=== PATIENT | female | born 1960 | race American Indian/Alaskan Native ===

== ENCOUNTER 2021-11-05 09:35 | Emergency (ER) | payer OTHER ==
[2021-11-05] MEDS ORDERED: SODIUM CHLORIDE 0.9% 1000 ML IV SOLN IV ONE (10:29)
[2021-11-05] MEDS ORDERED: ONDANSETRON 4 MG/2 ML INJ IV ONE ×2 (10:30→17:26)
--- NOTE | 2021-11-05 10:39 | Emergency Department Report ---
ED N/V/D HPI - General Chief complaint: Weakness Stated complaint: ANGIE/MALAISE Time Seen by Provider: 11/05/21 10:20 Source: patient, EMS, old records reviewed (No previous medical record available for review) Mode of arrival: Stretcher Limitations: No Limitations - History of Present Illness Initial comments: 61-year-old female with a past medical history of hypertension and breast cancer presents to the hospital complaining of persistent nausea, vomiting, diarrhea with generalized weakness status post chemo. Patient received chemo 8 days ago for left-sided breast cancer diagnosed in August. She states she typically has nausea, vomiting, diarrhea 3 days post chemo which also occurred during this time. She is taken medications for the symptoms but symptoms continue and today she was too weak to get out of the bathroom. She presents mildly hypotensive and tachycardic with generalized weakness and report of intermittent cramping to her hands and legs. Patient states that 6 days ago she had a urethral/bladder surgical procedure performed at [facility] and presents with a Wild catheter. Patient denies fever but states she is having intermittent chills. No chest pain reported. Patient is a Young without previous visits here Code sepsis initiated after my bedside evaluation - Related Data Allergies Allergy/AdvReac Type Severity Reaction Status Date / Time orange AdvReac Unknown Verified 11/05/21 09:37 shellfish derived AdvReac Unknown Verified 11/05/21 09:37 ED Review of Systems ROS: Stated complaint: ANGIE/MALAISE Other details as noted in HPI Comment: All other systems reviewed and negative ED Past Medical Hx - Past Medical History Hx Hypertension: Yes Hx of Cancer: Yes (Left breast cancer diagnosed August) - Surgical History Additional Surgical History: Ectopic , umbilical hernia repair as a child ED Physical Exam - General Limitations: No Limitations - Other Other exam information: General: No acute distress Head: Atraumatic Eyes: normal appearance ENT: Moist mucous membranes Neck: Normal appearance, no midline tenderness Chest: Clear to auscultation bilaterally CV: Regular rate and rhythm Abdomen: Soft, normal bowel sounds, left upper quadrant tenderness , nondistended, no rebound or guarding Back: Normal inspection Extremity: Normal inspection, full range of motion Neuro: Alert O x 3, no facial asymmetry, speech clear, no gross motor sensory deficit Psych: Appropriate behavior Skin: No rash ED Course Vital Signs 11/05/21 11/05/21 11/05/21 09:36 09:40 11:21 Temperature 97.2 F L Pulse Rate 104 H 89 Respiratory 14 18 Rate Blood Pressure 94/53 Blood Pressure 108/68 95/60 [Left] O2 Sat by Pulse 100 9 L Oximetry 11/05/21 11/05/21 13:05 19:33 Temperature 97.6 F 98.2 F Pulse Rate 89 68 Respiratory 16 18 Rate Blood Pressure Blood Pressure 100/64 102/62 [Left] O2 Sat by Pulse 99 99 Oximetry - Consultations Consultation #1: 11/05/21 13:22 Case discussed with [facility] doctor At this time. Acceptance pending reassessment after IV fluid bolus. If blood pressure and other vitals remain within normal range they will accept the transfer. If patient becomes unstable during resuscitation and admission here will be recommended 11/05/21 14:21 Case we discussed with [facility] physician. Patient is tentatively accepted. Lactic acid is trending downward. Repeat troponin ordered. Patient's blood pressure is improved just after 1 L normal saline with repeat liters pending. Magnesium also has finished infusion and patient is currently receiving IV potassium. [facility] physician will put in request for bed. Patient be signed out to oncoming provider to follow-up on repeat troponin to ensure not trending upward and reassessment of stability prior to transfer to [facility] ED Medical Decision Making - Lab Data Result diagrams: 11/05/21 10:47 11/05/21 10:47 Lab Results 11/05/21 11/05/21 11/05/21 Range/Units 10:47 10:47 10:47 WBC 5.5 (4.5-11.0) K/mm3 RBC 3.78 (3.65-5.03) M/mm3 Hgb 10.8 (10.1-14.3) gm/dl Hct 31.7 (30.3-42.9) % MCV 84 (79-97) fl MCH 29 (28-32) pg MCHC 34 (30-34) % RDW 20.8 H (13.2-15.2) % Plt Count 111 L (140-440) K/mm3 Add Manual Diff Complete Total Counted 100 Seg Neuts % (Manual) 55.0 (40.0-70.0) % Band Neutrophils % 13.0 % Lymphocytes % (Manual) 16.0 (13.4-35.0) % Reactive Lymphs % (Man) 0 % Monocytes % (Manual) 14.0 H (0.0-7.3) % Eosinophils % (Manual) 0 (0.0-4.3) % Basophils % (Manual) 0 (0.0-1.8) % Metamyelocytes % 2.0 % Myelocytes % 0 % Promyelocytes % 0 % Blast Cells % 0 % Nucleated RBC % Not Reportable Seg Neutrophils # Man 3.0 (1.8-7.7) K/mm3 Band Neutrophils # 0.7 K/mm3 Lymphocytes # (Manual) 0.9 L (1.2-5.4) K/mm3 Abs React Lymphs (Man) 0.0 K/mm3 Monocytes # (Manual) 0.8 (0.0-0.8) K/mm3 Eosinophils # (Manual) 0.0 (0.0-0.4) K/mm3 Basophils # (Manual) 0.0 (0.0-0.1) K/mm3 Metamyelocytes # 0.1 K/mm3 Myelocytes # 0.0 K/mm3 Promyelocytes # 0.0 K/mm3 Blast Cells # 0.0 K/mm3 WBC Morphology Not Reportable Hypersegmented Neuts Not Reportable Hyposegmented Neuts Not Reportable Hypogranular Neuts Not Reportable Smudge Cells Not Reportable Toxic Granulation Not Reportable Toxic Vacuolation Not Reportable Dohle Bodies Not Reportable Pelger-Huet Anomaly Not Reportable Chelly Rods Not Reportable Platelet Estimate Consistent w auto Clumped Platelets Not Reportable Plt Clumps, EDTA Not Reportable Large Platelets Not Reportable Giant Platelets Not Reportable Platelet Satelliting Not Reportable Plt Morphology Comment Not Reportable RBC Morphology Not Reportable Dimorphic RBCs Not Reportable Polychromasia Not Reportable Hypochromasia Not Reportable Poikilocytosis 1+ Anisocytosis 1+ Microcytosis Not Reportable Macrocytosis Not Reportable Spherocytes Not Reportable Pappenheimer Bodies Not Reportable Sickle Cells Not Reportable Target Cells Not Reportable Tear Drop Cells Not Reportable Ovalocytes 1+ Helmet Cells Not Reportable Brewer-Bruni Bodies Not Reportable [place] Rings Not Reportable [place] Cells Not Reportable Bite Cells Not Reportable Crenated Cell Not Reportable Elliptocytes Few Acanthocytes (Spur) Not Reportable Rouleaux Not Reportable Hemoglobin C Crystals Not Reportable Schistocytes Not Reportable Malaria parasites Not Reportable Jose M Bodies Not Reportable Hem Pathologist Commnt No VBG pH (7.320-7.420) Sodium 139 (137-145) mmol/L Potassium 2.6 L* (3.6-5.0) mmol/L Chloride 91.4 L (98-107) mmol/L Carbon Dioxide 28 (22-30) mmol/L Anion Gap 22 mmol/L BUN 37 H (7-17) mg/dL Creatinine 3.6 H (0.6-1.2) mg/dL Estimated GFR 16 ml/min BUN/Creatinine Ratio 10 % Glucose 117 H (65-100) mg/dL POC Glucose (70-105) mg/dL Lactic Acid 3.00 H* (0.7-2.0) mmol/L Calcium 7.1 L (8.4-10.2) mg/dL Magnesium (1.7-2.3) mg/dL Total Bilirubin 1.20 (0.1-1.2) mg/dL AST 39 (5-40) units/L ALT 60 H (7-56) units/L Alkaline Phosphatase 76 (35-129) units/L Troponin T (0.00-0.029) ng/mL Total Protein 6.0 L (6.3-8.2) g/dL Albumin 3.5 L (3.9-5) g/dL Albumin/Globulin Ratio 1.4 % Triglycerides (2-149) mg/dL Cholesterol (50-199) mg/dL LDL Cholesterol Direct (50-130) mg/dL HDL Cholesterol (40-59) mg/dL Cholesterol/HDL Ratio % Lipase (13-60) units/L Urine Color (Yellow) Urine Turbidity (Clear) Urine pH (5.0-7.0) Ur Specific [place] (1.003-1.030) Urine Protein (Negative) mg/dL Urine Glucose (UA) (Negative) mg/dL Urine Ketones (Negative) mg/dL Urine Blood (Negative) Urine Nitrite (Negative) Urine Bilirubin (Negative) Urine Urobilinogen (<2.0) mg/dL Ur Leukocyte Esterase (Negative) Urine WBC (Auto) (0.0-6.0) /HPF Urine RBC (Auto) (0.0-6.0) /HPF U Epithel Cells (Auto) (0-13.0) /HPF Urine Bacteria (Auto) (Negative) /HPF Hyaline Casts /LPF Urine Mucus /HPF 11/05/21 11/05/21 11/05/21 Range/Units 10:47 10:47 10:47 WBC (4.5-11.0) K/mm3 RBC (3.65-5.03) M/mm3 Hgb (10.1-14.3) gm/dl Hct (30.3-42.9) % MCV (79-97) fl MCH (28-32) pg MCHC (30-34) % RDW (13.2-15.2) % Plt Count (140-440) K/mm3 Add Manual Diff Total Counted Seg Neuts % (Manual) (40.0-70.0) % Band Neutrophils % % Lymphocytes % (Manual) (13.4-35.0) % Reactive Lymphs % (Man) % Monocytes % (Manual) (0.0-7.3) % Eosinophils % (Manual) (0.0-4.3) % Basophils % (Manual) (0.0-1.8) % Metamyelocytes % % Myelocytes % % Promyelocytes % % Blast Cells % % Nucleated RBC % Seg Neutrophils # Man (1.8-7.7) K/mm3 Band Neutrophils # K/mm3 Lymphocytes # (Manual) (1.2-5.4) K/mm3 Abs React Lymphs (Man) K/mm3 Monocytes # (Manual) (0.0-0.8) K/mm3 Eosinophils # (Manual) (0.0-0.4) K/mm3 Basophils # (Manual) (0.0-0.1) K/mm3 Metamyelocytes # K/mm3 Myelocytes # K/mm3 Promyelocytes # K/mm3 Blast Cells # K/mm3 WBC Morphology Hypersegmented Neuts Hyposegmented Neuts Hypogranular Neuts Smudge Cells Toxic Granulation Toxic Vacuolation Dohle Bodies Pelger-Huet Anomaly Chel[place] Rods Platelet Estimate Clumped Platelets Plt Clumps, EDTA Large Platelets Giant Platelets Platelet Satelliting Plt Morphology Comment RBC Morphology Dimorphic RBCs Polychromasia Hypochromasia Poikilocytosis Anisocytosis Microcytosis Macrocytosis Spherocytes Pappenheimer Bodies Sickle Cells Target Cells Tear Drop Cells Ovalocytes Helmet Cells Brewer-Bruni Bodies [place] Rings [place] Cells Bite Cells Crenated Cell Elliptocytes Acanthocytes (Spur) Rouleaux Hemoglobin C Crystals Schistocytes Malaria parasites Jose M Bodies Hem Pathologist Commnt VBG pH 7.511 H (7.320-7.420) Sodium (137-145) mmol/L Potassium (3.6-5.0) mmol/L Chloride (98-107) mmol/L Carbon Dioxide (22-30) mmol/L Anion Gap mmol/L BUN (7-17) mg/dL Creatinine (0.6-1.2) mg/dL Estimated GFR ml/min BUN/Creatinine Ratio % Glucose (65-100) mg/dL POC Glucose (70-105) mg/dL Lactic Acid (0.7-2.0) mmol/L Calcium (8.4-10.2) mg/dL Magnesium 1.00 L (1.7-2.3) mg/dL Total Bilirubin (0.1-1.2) mg/dL AST (5-40) units/L ALT (7-56) units/L Alkaline Phosphatase (35-129) units/L Troponin T 0.062 H (0.00-0.029) ng/mL Total Protein (6.3-8.2) g/dL Albumin (3.9-5) g/dL Albumin/Globulin Ratio % Triglycerides 127 (2-149) mg/dL Cholesterol 136 (50-199) mg/dL LDL Cholesterol Direct 43 L (50-130) mg/dL HDL Cholesterol 71 H (40-59) mg/dL Cholesterol/HDL Ratio 1.91 % Lipase 13 (13-60) units/L Urine Color (Yellow) Urine Turbidity (Clear) Urine pH (5.0-7.0) Ur Specific [place] (1.003-1.030) Urine Protein (Negative) mg/dL Urine Glucose (UA) (Negative) mg/dL Urine Ketones (Negative) mg/dL Urine Blood (Negative) Urine Nitrite (Negative) Urine Bilirubin (Negative) Urine Urobilinogen (<2.0) mg/dL Ur Leukocyte Esterase (Negative) Urine WBC (Auto) (0.0-6.0) /HPF Urine RBC (Auto) (0.0-6.0) /HPF U Epithel Cells (Auto) (0-13.0) /HPF Urine Bacteria (Auto) (Negative) /HPF Hyaline Casts /LPF Urine Mucus /HPF 11/05/21 11/05/21 11/05/21 Range/Units 10:49 11:20 13:31 WBC (4.5-11.0) K/mm3 RBC (3.65-5.03) M/mm3 Hgb (10.1-14.3) gm/dl Hct (30.3-42.9) % MCV (79-97) fl MCH (28-32) pg MCHC (30-34) % RDW (13.2-15.2) % Plt Count (140-440) K/mm3 Add Manual Diff Total Counted Seg Neuts % (Manual) (40.0-70.0) % Band Neutrophils % % Lymphocytes % (Manual) (13.4-35.0) % Reactive Lymphs % (Man) % Monocytes % (Manual) (0.0-7.3) % Eosinophils % (Manual) (0.0-4.3) % Basophils % (Manual) (0.0-1.8) % Metamyelocytes % % Myelocytes % % Promyelocytes % % Blast Cells % % Nucleated RBC % Seg Neutrophils # Man (1.8-7.7) K/mm3 Band Neutrophils # K/mm3 Lymphocytes # (Manual) (1.2-5.4) K/mm3 Abs React Lymphs (Man) K/mm3 Monocytes # (Manual) (0.0-0.8) K/mm3 Eosinophils # (Manual) (0.0-0.4) K/mm3 Basophils # (Manual) (0.0-0.1) K/mm3 Metamyelocytes # K/mm3 Myelocytes # K/mm3 Promyelocytes # K/mm3 Blast Cells # K/mm3 WBC Morphology Hypersegmented Neuts Hyposegmented Neuts Hypogranular Neuts Smudge Cells Toxic Granulation Toxic Vacuolation Dohle Bodies Pelger-Huet Anomaly Chelly Rods Platelet Estimate Clumped Platelets Plt Clumps, EDTA Large Platelets Giant Platelets Platelet Satelliting Plt Morphology Comment RBC Morphology Dimorphic RBCs Polychromasia Hypochromasia Poikilocytosis Anisocytosis Microcytosis Macrocytosis Spherocytes Pappenheimer Bodies Sickle Cells Target Cells Tear Drop Cells Ovalocytes Helmet Cells Brewer-Bruni Bodies [place] Rings [place] Cells Bite Cells Crenated Cell Elliptocytes Acanthocytes (Spur) Rouleaux Hemoglobin C Crystals Schistocytes Malaria parasites Jose M Bodies Hem Pathologist Commnt VBG pH (7.320-7.420) Sodium (137-145) mmol/L Potassium (3.6-5.0) mmol/L Chloride (98-107) mmol/L Carbon Dioxide (22-30) mmol/L Anion Gap mmol/L BUN (7-17) mg/dL Creatinine (0.6-1.2) mg/dL Estimated GFR ml/min BUN/Creatinine Ratio % Glucose (65-100) mg/dL POC Glucose 126 H (70-105) mg/dL Lactic Acid 2.40 H* (0.7-2.0) mmol/L Calcium (8.4-10.2) mg/dL Magnesium (1.7-2.3) mg/dL Total Bilirubin (0.1-1.2) mg/dL AST (5-40) units/L ALT (7-56) units/L Alkaline Phosphatase (35-129) units/L Troponin T (0.00-0.029) ng/mL Total Protein (6.3-8.2) g/dL Albumin (3.9-5) g/dL Albumin/Globulin Ratio % Triglycerides (2-149) mg/dL Cholesterol (50-199) mg/dL LDL Cholesterol Direct (50-130) mg/dL HDL Cholesterol (40-59) mg/dL Cholesterol/HDL Ratio % Lipase (13-60) units/L Urine Color [place] (Yellow) Urine Turbidity Cloudy (Clear) Urine pH 5.0 (5.0-7.0) Ur Specific [place] 1.015 (1.003-1.030) Urine Protein 100 mg/dl (Negative) mg/dL Urine Glucose (UA) Neg (Negative) mg/dL Urine Ketones Neg (Negative) mg/dL Urine Blood Lg (Negative) Urine Nitrite Neg (Negative) Urine Bilirubin Neg (Negative) Urine Urobilinogen < 2.0 (<2.0) mg/dL Ur Leukocyte Esterase Lg (Negative) Urine WBC (Auto) 130.0 H (0.0-6.0) /HPF Urine RBC (Auto) > 182.0 (0.0-6.0) /HPF U Epithel Cells (Auto) 4.0 (0-13.0) /HPF Urine Bacteria (Auto) 3+ (Negative) /HPF Hyaline Casts 26 /LPF Urine Mucus Few /HPF // Range/Units 14:08 WBC (4.5-11.0) K/mm3 RBC (3.65-5.03) M/mm3 Hgb (10.1-14.3) gm/dl Hct (30.3-42.9) % MCV (79-97) fl MCH (28-32) pg MCHC (30-34) % RDW (13.2-15.2) % Plt Count (140-440) K/mm3 Add Manual Diff Total Counted Seg Neuts % (Manual) (40.0-70.0) % Band Neutrophils % % Lymphocytes % (Manual) (13.4-35.0) % Reactive Lymphs % (Man) % Monocytes % (Manual) (0.0-7.3) % Eosinophils % (Manual) (0.0-4.3) % Basophils % (Manual) (0.0-1.8) % Metamyelocytes % % Myelocytes % % Promyelocytes % % Blast Cells % % Nucleated RBC % Seg Neutrophils # Man (1.8-7.7) K/mm3 Band Neutrophils # K/mm3 Lymphocytes # (Manual) (1.2-5.4) K/mm3 Abs React Lymphs (Man) K/mm3 Monocytes # (Manual) (0.0-0.8) K/mm3 Eosinophils # (Manual) (0.0-0.4) K/mm3 Basophils # (Manual) (0.0-0.1) K/mm3 Metamyelocytes # K/mm3 Myelocytes # K/mm3 Promyelocytes # K/mm3 Blast Cells # K/mm3 WBC Morphology Hypersegmented Neuts Hyposegmented Neuts Hypogranular Neuts Smudge Cells Toxic Granulation Toxic Vacuolation Dohle Bodies Pelger-Huet Anomaly Chelly Rods Platelet Estimate Clumped Platelets Plt Clumps, EDTA Large Platelets Giant Platelets Platelet Satelliting Plt Morphology Comment RBC Morphology Dimorphic RBCs Polychromasia Hypochromasia Poikilocytosis Anisocytosis Microcytosis Macrocytosis Spherocytes Pappenheimer Bodies Sickle Cells Target Cells Tear Drop Cells Ovalocytes Helmet Cells Brewer-Bruni Bodies [place] Rings [place] Cells Bite Cells Crenated Cell Elliptocytes Acanthocytes (Spur) Rouleaux Hemoglobin C Crystals Schistocytes Malaria parasites Jose M Bodies Hem Pathologist Commnt VBG pH (7.320-7.420) Sodium (137-145) mmol/L Potassium (3.6-5.0) mmol/L Chloride (98-107) mmol/L Carbon Dioxide (22-30) mmol/L Anion Gap mmol/L BUN (7-17) mg/dL Creatinine (0.6-1.2) mg/dL Estimated GFR ml/min BUN/Creatinine Ratio % Glucose (65-100) mg/dL POC Glucose (70-105) mg/dL Lactic Acid 1.90 (0.7-2.0) mmol/L Calcium (8.4-10.2) mg/dL Magnesium (1.7-2.3) mg/dL Total Bilirubin (0.1-1.2) mg/dL AST (5-40) units/L ALT (7-56) units/L Alkaline Phosphatase (35-129) units/L Troponin T (0.00-0.029) ng/mL Total Protein (6.3-8.2) g/dL Albumin (3.9-5) g/dL Albumin/Globulin Ratio % Triglycerides (2-149) mg/dL Cholesterol (50-199) mg/dL LDL Cholesterol Direct (50-130) mg/dL HDL Cholesterol (40-59) mg/dL Cholesterol/HDL Ratio % Lipase (13-60) units/L Urine Color (Yellow) Urine Turbidity (Clear) Urine pH (5.0-7.0) Ur Specific [place] (1.003-1.030) Urine Protein (Negative) mg/dL Urine Glucose (UA) (Negative) mg/dL Urine Ketones (Negative) mg/dL Urine Blood (Negative) Urine Nitrite (Negative) Urine Bilirubin (Negative) Urine Urobilinogen (<2.0) mg/dL Ur Leukocyte Esterase (Negative) Urine WBC (Auto) (0.0-6.0) /HPF Urine RBC (Auto) (0.0-6.0) /HPF U Epithel Cells (Auto) (0-13.0) /HPF Urine Bacteria (Auto) (Negative) /HPF Hyaline Casts /LPF Urine Mucus /HPF - EKG Data -: EKG Interpreted by Ok EKG shows normal: sinus rhythm, intervals (Normal QTC 460), QRS complexes (Normal QRS duration 90), ST-T waves (Lateral T wave inversions, inferior T wave inversions, LVH) Rate: normal - EKG Data When compared to previous EKG there are: previous EKG unavailable - Radiology Data Radiology results: report reviewed CHEST 1 VIEW 11/05/2021 10:27 AM INDICATION / CLINICAL INFORMATION: n,v, breast cancer, chemo. COMPARISON: None available. FINDINGS: SUPPORT DEVICES: Right IJ port appears well positioned. HEART / MEDIASTINUM: No significant abnormality. LUNGS / PLEURA: No significant pulmonary or pleural abnormality. No pneumothorax. ADDITIONAL FINDINGS: No significant additional findings. IMPRESSION: 1. No acute findings. CT ABDOMEN AND PELVIS WITHOUT CONTRAST HISTORY: abd pain n,v,d after chemo COMPARISON: None. TECHNIQUE: Axial CT images were obtained through the abdomen and pelvis without IV contrast. Sagittal and coronal reformatted images. All CT scans at this location are performed using CT dose reduction for ALARA by means of automated exposure control. FINDINGS: CT ABDOMEN: Lung Bases: No nodule, infiltrate or effusion. Minor linear scarring or atelectasis is noted in the left lower lobe. Liver: No significant abnormality. Biliary: No significant abnormality. Spleen: No significant abnormality. Unenlarged. Pancreas: No significant abnormality. Adrenals: No significant abnormality. Kidneys: No significant abnormality. Lymphatics: No lymphadenopathy. Vasculature: No significant abnormality. Bowel/Peritoneum: No significant abnormality. No free air. No free fluid. Normal appendix. CT PELVIS: : The uterus is mildly lobular suggesting mild uterine fibroid disease. A left ovarian cyst measures up to 3.8 cm. The right ovary is unremarkable. The bladder is decompressed with a Wild catheter and poorly evaluated. There appears to be mild bladder wall thickening and mild perivesicular fat stranding. A mild cystitis could be considered. Osseous Structures: No suspicious bony lesion. Mild degenerative changes in the thoracolumbar spine and SI joints. Additional Findings: None IMPRESSION: Question mild cystitis, see above. Mild uterine fibroid disease. 3.8 cm left ovarian cyst. - Medical Decision Making 61-year female presents to the hospital with nausea, vomiting, diarrhea, p.o. intolerance status post chemotherapy and hypotension with associated weakness. Code sepsis initiated upon ED arrival with IV fluid boluses. Patient was found to have elevated lactic acid which is decreasing with IV fluid bolus, hypomagnesemia, and hypokalemia. IV potassium and magnesium initiated. Mild troponin elevation noted but also patient has mild renal sufficiency. Repeat pending. EKG shows T wave inversions without previous EKG available for comparison. Patient does not endorse having chest pain. CT abdomen pelvis showing possible cystitis. Patient had a recent unknown bladder surgery and presented with a Wild catheter. First UA was sent from urinary bag. Request that nurse changed the catheter bag to a new one and then we send the urine to confirm whether or not there is active infection. Chest x-ray unremarkable. Patient differential includes sepsis secondary to UTI, dehydration secondary to chemotherapy, and other sources of infection have been ruled out. Patient has been accepted by [facility] physician Dr CARRANZA for transfer to [facility] and we are currently awaiting bed assignment Patient's map is well above 65 after 1 liter IV fluids with more fluids Case will be signed out to oncoming physician Dr. Beard to f/u trop and continue with transfer as long as MAP remains above 65 and patient is stable. If patient decompensates then transfer will need to be canceled and patient will need to be admitted here after we discussion with [facility] Critical Care Time: Yes Critical care attestation.: If time is entered above; I have spent that time in minutes in the direct care of this critically ill patient, excluding procedure time. Critical Care Time: 35 minutes of critical care time excluding procedures were used in the care of the patient. I came immediately to the bedside upon patient's arrival. I obtained history from EMS at the bedside. I discussed treatment plan with the nursing team members. Patient required multiple interventions and reassessments. Coordinated transfer to [facility] ED Disposition Clinical Impression: Sepsis, UTI (urinary tract infection), Dehydration, Status post chemotherapy, Nausea vomiting and diarrhea, Hypokalemia, Hypomagnesemia, Renal insufficiency, Urinary catheter in place Disposition: 02 SHORT TERM HOSPITAL Is pt being admited?: No Condition: Stable Referrals: JUAN C MEJIA MD [Primary Care Provider] - 3-5 Days
[2021-11-05 11:01] LABS: Hematocrit 31.7 % (30.3-42.9); Hemoglobin 10.8 gm/dl (10.1-14.3); Mean Corpuscular HGB Conc 34 % (30-34); Mean Corpuscular Volume 84 fl (79-97); Platelet Count 111 K/mm3 (140-440); Red Blood Count 3.78 M/mm3 (3.65-5.03)
[2021-11-05 11:03] LABS: Red Cell Distribution Width 20.8 % (13.2-15.2)
[2021-11-05 11:19] LABS: Albumin 3.5 g/dL (3.9-5); Calcium 7.1 mg/dL (8.4-10.2)
[2021-11-05 11:33] LABS: Anisocytosis 1+; Band Neutrophils # (Manual) 0.7 K/mm3; Basophils % (Manual) 0 % (0.0-1.8); Eosinophils % (Manual) 0 % (0.0-4.3); Poikilocytosis 1+; Total Cells Counted 100
[2021-11-05 11:34] LABS: Ovalocytes 1+; Platelet Estimate Consistent w Auto
--- NOTE | 2021-11-05 11:35 | XRay Report ---
CHEST 1 VIEW 11/05/2021 10:27 AM INDICATION / CLINICAL INFORMATION: n,v, breast cancer, chemo. COMPARISON: None available. FINDINGS: SUPPORT DEVICES: Right IJ port appears well positioned. HEART / MEDIASTINUM: No significant abnormality. LUNGS / PLEURA: No significant pulmonary or pleural abnormality. No pneumothorax. ADDITIONAL FINDINGS: No significant additional findings. IMPRESSION: 1. No acute findings. Signer Name: Willem Shea MD Signed: 11/05/2021 11:31 AM Workstation Name: [id number]
[2021-11-05] MEDS ORDERED: MAGNESIUM SULFATE 2 GM/50 ML BAG IV ONE (11:41)
[2021-11-05 11:52] LABS: Bacteria,Urine 3+ /HPF (Negative); Bilirubin,Urine NEG (Negative); Blood,Urine LG (Negative); Color,Urine Amber (Yellow); Hyaline Casts,Urine 26 /LPF; Mucus,Urine FEW /HPF; Urobilinogen,Urine < 2.0 mg/dL (<2.0)
[2021-11-05 11:54] LABS: RBC,Urine > 182.0 /HPF (0.0-6.0)
[2021-11-05 11:58] LABS: Chol/HDL Ratio 1.91 %
[2021-11-05] MEDS ORDERED: POTASSIUM CHLORIDE 20 MEQ 20 MEQ/100 ML BAG IV SCH (12:00)
[2021-11-05] MEDS ORDERED: CEFEPIME/NS 2 GM/100 ML 2 GM/100 ML BAG IV ONE ×2 (12:08→16:00)
--- NOTE | 2021-11-05 12:21 | Cat Scan Report ---
CT ABDOMEN AND PELVIS WITHOUT CONTRAST HISTORY: abd pain n,v,d after chemo COMPARISON: None. TECHNIQUE: Axial CT images were obtained through the abdomen and pelvis without IV contrast. Sagittal and coronal reformatted images. All CT scans at this location are performed using CT dose reduction for ALARA by means of automated exposure control. FINDINGS: CT ABDOMEN: Lung Bases: No nodule, infiltrate or effusion. Minor linear scarring or atelectasis is noted in the l eft lower lobe. Liver: No significant abnormality. Biliary: No significant abnormality. Spleen: No significant abnormality. Unenlarged. Pancreas: No significant abnormality. Adrenals: No significant abnormality. Kidneys: No significant abnormality. Lymphatics: No lymphadenopathy. Vasculature: No significant abnormality. Bowel/Peritoneum: No significant abnormality. No free air. No free fluid. Normal appendix. CT PELVIS: : The uterus is mildly lobular suggesting mild uterine fibroid disease. A left ovarian cyst measure s up to 3.8 cm. The right ovary is unremarkable. The bladder is decompressed with a Wild catheter an d poorly evaluated. There appears to be mild bladder wall thickening and mild perivesicular fat stran ding. A mild cystitis could be considered. Osseous Structures: No suspicious bony lesion. Mild degenerative changes in the thoracolumbar spine a nd SI joints. Additional Findings: None IMPRESSION: Question mild cystitis, see above. Mild uterine fibroid disease. 3.8 cm left ovarian cyst. Signer Name: Carloz Garcia Jr, MD Signed: 11/05/2021 12:17 PM Workstation Name: [id number]
[2021-11-05 19:35] VITALS: BP 102/62
--- NOTE | 2021-11-06 14:24 | Electrocardiograph Report ---
[facility] Test Date: 2021-11-05 Test Time: 09:56:17 Pat Name: LILIYA MARSHALL Department: Room: Gender: F Tannery Gummer: DOUG : 1960 Requested By: MERISSA MOTA Order Number: [id number] Reading MD: Britni Gandhi Measurements Intervals [place] Rate: 95 P: 71 NH: 139 QRS: 29 QRSD: 94 T: 211 QT: 368 QTc: 460 Interpretive Statements Sinus rhythm Atrial premature complex Probable LVH with secondary repol abnrm No previous ECG available for comparison Electronically Signed On 11-06-2021 14:23:33 EDT by Britni Gandhi
== END 2021-11-05 19:33 | disposition short-term general hospital (02) ==
LOC: ED 09:35
DX: A41.9 Sepsis, unspecified organism (principal); N39.0 Urinary tract infection, site not specified; E86.0 Dehydration; Z92.21 Personal history of antineoplastic chemotherapy; R11.2 Nausea with vomiting, unspecified; R19.7 Diarrhea, unspecified; E87.6 Hypokalemia; E83.42 Hypomagnesemia; N28.9 Disorder of kidney and ureter, unspecified
CPT/HCPCS: 36415; 71045; 74176; 80053; 80061; 81001; 82140; 82805; 82962; 83690; 83735; 84484; 85007; 85025; 87040; 93005; 96365; 96366; 96367; 99291; J0692; J2405; J3475; J3480; J7030; Q0162

== ENCOUNTER 2022-03-04 08:41 | Emergency (ER) | payer OTHER ==
--- NOTE | 2022-03-04 10:10 | Cat Scan Report ---
CT head/brain wo con INDICATION: S/P FALL HIT HEAD; ON ANTICOAGULATION. TECHNIQUE: Routine CT head. All CT scans at this location are performed using CT dose reduction for A JAS by means of automated exposure control. COMPARISON: None. FINDINGS: Intracranial: Augustine-white matter differentiation is maintained. No intracranial hemorrhage. No extra a xial collection. No hydrocephalus. No herniation. 1 cm hypoattenuating left pituitary lesion with Johnny nsfield units of approximately 65. Sinuses: Paranasal sinuses and mastoid air cells are essentially clear. Orbits: Globes are intact. Calvarium: No acute fracture. IMPRESSION: 1. No acute intracranial abnormality. 2. 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 Correlate clinically and recommend MRI pituitary with and without contrast to further characterize. Signer Name: Aime Wallace MD Signed: 03/04/2022 10:05 AM Workstation Name: [id number]
--- NOTE | 2022-03-04 10:35 | XRay Report ---
XR shoulder 2+V RT INDICATION / CLINICAL INFORMATION: /SP FALL,RT SHOULDER PAIN. COMPARISON: None available. FINDINGS: BONES/JOINT(S): No acute fracture or subluxation. Mild DJD in the AC joint. No focal bone erosions or focal osteopenia to suggest inflammatory arthropathy. SOFT TISSUES: No significant abnormality. ADDITIONAL FINDINGS: None. Signer Name: Willem Shea MD Signed: 03/04/2022 10:30 AM Workstation Name: [id number]
--- NOTE | 2022-03-04 10:36 | XRay Report ---
XR spine lumbosacral 2-3V INDICATION / CLINICAL INFORMATION: S/P FALL LOW BACK PAIN. COMPARISON: None available. FINDINGS: BONES/JOINT(S): No acute fracture or subluxation. Mild generalized spondylosis. No focal bone erosion s or focal osteopenia to suggest inflammatory arthropathy. SOFT TISSUES: No significant abnormality. ADDITIONAL FINDINGS: None. Signer Name: Willem Shea MD Signed: 03/04/2022 10:32 AM Workstation Name: [id number]
[2022-03-04 11:30] LABS: Hematocrit 29.6 % (30.3-42.9); Hemoglobin 9.5 gm/dl (10.1-14.3); Mean Corpuscular HGB Conc 32 % (30-34); Mean Corpuscular Volume 97 fl (79-97); Platelet Count 256 K/mm3 (140-440); Red Blood Count 3.06 M/mm3 (3.65-5.03); Red Cell Distribution Width 16.5 % (13.2-15.2)
[2022-03-04 11:43] LABS: Albumin 3.3 g/dL (3.9-5); Calcium 9.1 mg/dL (8.4-10.2)
[2022-03-04 12:23] LABS: Mucus,Urine FEW /HPF
[2022-03-04 12:50] LABS: Bilirubin,Urine Negative (Negative); Color,Urine Straw (Yellow); WBC,Urine > 182.0 /HPF (0.0-6.0)
[2022-03-04 12:51] LABS: Blood,Urine Large (Negative); Urobilinogen,Urine < 2.0 mg/dL (<2.0)
[2022-03-04] MEDS ORDERED: cefTRIAXone/NS 1 GM/50 ML 1 GM/50 ML BAG IV ONE (13:55)
--- NOTE | 2022-03-04 14:24 | XRay Report ---
BILATERAL KNEE 4 VIEW(S) INDICATION / CLINICAL INFORMATION: s/p fall bilateral knee pain COMPARISON: None available. FINDINGS: BONES / JOINT(S): No acute fracture or subluxation. Moderate bilateral tricompartment degenerative ar throsis especially in the medial compartments bilaterally. 1.6 cm intra-articular osteochondral body in the right suprapatellar recess. SOFT TISSUES: No significant abnormality. ADDITIONAL FINDINGS: None. IMPRESSION: 1. No acute fracture. 2. Moderate bilateral knee degenerative arthrosis. Signer Name: Chanel Barnett MD Signed: 03/04/2022 2:20 PM Workstation Name: [id number]
--- NOTE | 2022-03-04 14:42 | Emergency Department Report ---
ED General Adult HPI - General Chief complaint: Fall Stated complaint: FALL/PAIN Time Seen by Provider: 03/04/22 09:26 Source: patient, EMS Mode of arrival: Stretcher Limitations: No Limitations - History of Present Illness Initial comments: This is a 61-year-old female with medical history of recent diagnosed left lower extremity DVT who is currently on Xarelto and also a history of HER2 breast cancer currently in remission came in today with concerns after she is sustained a mechanical ground-level fall around 7AM this morning and was immediately brought into the ER. Patient said that her bilateral knee, right shoulder, lower lumbar hurts after the fall. Patient said that she also hit her head but denies loss of consciousness. Patient endorse feeling constipated and would like some medication to help her constipation. Patient denies any other symptoms denies fever chill night sweat dizziness blurred vision lightheadedness headache tinnitus ear pain runny nose sore throat loss of taste or smell chest pain palpitation short breath cough abdominal pain nausea vomiting diarrhea constipation muscle pain new rash and heat or cold intolerance. - Related Data Allergies Allergy/AdvReac Type Severity Reaction Status Date / Time orange AdvReac Unknown Verified 03/04/22 08:46 shellfish derived AdvReac Unknown Verified 03/04/22 08:46 tomato AdvReac Unknown Verified 03/04/22 08:46 ED Review of Systems ROS: Stated complaint: FALL/PAIN Other details as noted in HPI Comment: All other systems reviewed and negative Constitutional: no symptoms reported, see HPI Eyes: as per HPI ENT: as per HPI Respiratory: no symptoms reported, see HPI Cardiovascular: as per HPI Endocrine: no symptoms reported, see HPI Gastrointestinal: as per HPI ED Past Medical Hx - Past Medical History Hx Hypertension: Yes Hx CVA: No Hx Heart Attack/AMI: No Hx Congestive Heart Failure: No Hx Diabetes: No Hx Deep Vein Thrombosis: No Hx Pulmonary Embolism: No Hx GERD: No Hx Liver Disease: No Hx Renal Disease: No Hx Sickle Cell Disease: No Hx Arthritis: No Hx Headaches / Migraines: No Hx Seizures: No Hx Kidney Stones: No Hx Psychiatric Treatment: No Hx Asthma: No Hx COPD: No Hx Tuberculosis: No Hx Dementia: No Hx HIV: No - Surgical History Hx Coronary Stent: No Hx Open Heart Surgery: No Hx Pacemaker: No Hx Internal Defibrillator: No Hx Cholecystectomy: No Hx Appendectomy: No Hx Breast Surgery: No Additional Surgical History: Ectopic , umbilical hernia repair as a child - Social History Smoking Status: Never Smoker Substance Use Type: Alcohol ED Physical Exam - General Limitations: No Limitations General appearance: alert, in no apparent distress - Head Head exam: Present: atraumatic, normocephalic, normal inspection - Eye Eye exam: Present: normal appearance, PERRL, EOMI Pupils: Present: normal accommodation - ENT ENT exam: Present: normal exam, mucous membranes moist - Neck Neck exam: Present: normal inspection, full ROM - Respiratory Respiratory exam: Present: normal lung sounds bilaterally - Cardiovascular Cardiovascular Exam: Present: regular rate, normal rhythm, normal heart sounds - GI/Abdominal GI/Abdominal exam: Present: soft - Extremities Exam Extremities exam: Present: normal inspection, full ROM, normal capillary refill - Back Exam Back exam: Present: normal inspection, full ROM - Neurological Exam Neurological exam: Present: alert, oriented X3, CN II-XII intact - Psychiatric Psychiatric exam: Present: normal affect, normal mood - Skin Skin exam: Present: normal color ED Course Vital Signs 03/04/22 03/04/22 03/04/22 08:44 09:35 09:49 Temperature 98.6 F Pulse Rate 86 Respiratory 16 Rate Blood Pressure 143/79 143/79 Blood Pressure 136/72 [Left] O2 Sat by Pulse 99 97 96 Oximetry 03/04/22 03/04/22 03/04/22 10:23 10:31 10:45 Temperature Pulse Rate Respiratory Rate Blood Pressure 143/79 143/79 143/79 Blood Pressure [Left] O2 Sat by Pulse 100 99 100 Oximetry 03/04/22 03/04/22 03/04/22 11:01 11:15 11:31 Temperature Pulse Rate Respiratory Rate Blood Pressure 143/79 151/80 151/80 Blood Pressure [Left] O2 Sat by Pulse 98 100 95 Oximetry 03/04/22 11:45 Temperature Pulse Rate Respiratory Rate Blood Pressure 148/60 Blood Pressure [Left] O2 Sat by Pulse 100 Oximetry - Consultations Consultation #1: 03/04/22 14:50 PATIENT WENT TO MRI AT 2:45PM. SPOKE TO DR. ALBRECHT (CERNA). STATES IF MRI IS POSITIVE, PLEASE CALL BACK SO HE CAN CALL NEUROSURGEON AT [facility] AND ARRANGE FOR TRANSFER. I WILL SIGN OUT MY PATIENT CARE TO MY ON COMING COLLEAGUE DR. BROWN AT 3PM. 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 ED Medical Decision Making - Lab Data Result diagrams: 03/04/22 09:49 03/04/22 09:49 Critical care attestation.: If time is entered above; I have spent that time in minutes in the direct care of this critically ill patient, excluding procedure time. ED Disposition Clinical Impression: UTI (urinary tract infection), Constipation, Knee contusion, Lumbar contusion, Shoulder contusion Condition: Stable Referrals: JUAN C MEJIA MD [Primary Care Provider] - 3-5 Days
--- NOTE | 2022-03-04 16:40 | Magnetic Resonance Report ---
MRI BRAIN 03/04/2022 INDICATION / CLINICAL INFORMATION: RADIOLOGIST RECOMMEND MRI W/ W/O C FOR POSSIBLE PITUITARY BLEED. TECHNIQUE: Multiplanar, multisequence MR images of the brain were obtained. COMPARISON: CT brain 03/04/2022 FINDINGS: BRAIN / INTRACRANIAL CONTENTS: Unenhanced and enhanced MR images of the pituitary gland were obtained and correlated with the earlier CT scan. 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 This mass is relatively hyperintense on the precontrast T1- weighted images, without definite enhancement. There is rightward deviation of the infundibulum. There is no evidence of optic chiasm compression. Parasellar structures are otherwise unremarkable. Images of the brain demonstrate no evidence of acute abnormality. Age-related atrophic changes and mi ld microangiopathic changes are present. IMPRESSION: Sellar mass as described above. 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 This is likely to be a incidenta l finding, and a patient with a current history of trauma. Signer Name: Kenneth Jordan MD Signed: 03/04/2022 4:36 PM Workstation Name: [id number]
--- NOTE | 2022-03-04 18:43 | Event Note ---
Patient signed out to me by outgoing emergency physician, Dr. Bowens. See patient's electronic health record for his documented impression and plan. At the time of the signout, patient was pending results of MRI of her brain. Patient reassessed by me multiple times. She is comfortable and well-appearing. Her vitals are stable. She remained hemodynamically stable and neurovascular intact. MDM: Necessity of transfer as a result of the patient's documented MRI findings, were discussed with [facility] physician,, Dr. Balderas. Per Dr. Balderas's verbal report, he contacted neurosurgery at [facility]. They recommended the patient be admitted to the hospitalist service there and will undergo repeat head CT in the morning. Per his verbal report, patient has been accepted at [facility] to the hospitalist service. Admitting hospitalist, Dr. Arcos. Transportation will be arranged by [facility].
[2022-03-04 18:53] LABS: INR 1.48 (0.87-1.13)
[2022-03-04 20:39] VITALS: BP 165/77
== END 2022-03-05 12:54 | disposition short-term general hospital (02) ==
LOC: ED 08:41
DX: S30.0XXA Contusion of lower back and pelvis, initial encounter (principal); S40.011A Contusion of right shoulder, initial encounter; S80.02XA Contusion of left knee, initial encounter; S80.01XA Contusion of right knee, initial encounter; N39.0 Urinary tract infection, site not specified; K59.00 Constipation, unspecified; X58.XXXA Exposure to other specified factors, initial encounter; Y93.89 Activity, other specified; Y92.89 Other specified places as the place of occurrence of the external cause; Y99.8 Other external cause status
CPT/HCPCS: 36415; 70450; 70553; 72100; 73030; 73560; 80053; 81001; 85027; 85610; 85730; 96365; 99285; A9575; J0696